=== PATIENT | male | born 1965 | race Caucasian/White ===

== ENCOUNTER 2017-12-17 17:05 | Emergency (ER) | payer OTHER, SELFPAY ==
[2017-12-17 17:07] VITALS: BP 159/100; PULSE 95; RESP 14; TEMP 36.8; O2SAT 98; BMI 27.3
--- NOTE | 2017-12-17 18:44 | ED.VISSUMM ---
- ER Visit Summary Date of Service: 12/17/17 Chief Complaint: Right toe pain History of Present Illness: The patient is a 52 M who was playing soccer and avulsed part of his toe nail medially a few days ago he still has some pain but now he noticed some erythema. No fever or chills no chest pain shortness of breath. Physical Examination: Otherwise unremarkable exam, lower extremity examination reveals a paronychia medially, there is cellulitis of the great toe, some tenderness to palpation. There is minimal lymphangitic streaking of the foot but not ankle. Emergency Department Course and Treatment: Toe x-ray does not show fracture, the paronychia has no pus, no reason for draining. He does not have a big ingrown toenail, I can palpate the edge. Patient had a prolonged stay for his x-ray on reevaluation I think is lymphangitic streaking slightly worsened therefore I gave him 1 dose of IV antibiotics. The streaking was still in the foot and not ankle. He has no tenderness of the leg, knee or thigh. He understands that this gets worse needs to return. I will put him on clindamycin for home. Disposition: Discharge stable condition Impression: Paronychia This note was generated with Poliana dictation software. It may contain incorrect words, spelling, and punctuation that were not noted in review of the chart prior to signing ED Disposition - Plan for ED Patient: Disposition: Home or Assisted Living Chief Complaint: Lower Extremity Injury Instructions: ED Toenail Ingrown Infec Abx Onl Prescriptions: Hydrocodone Bitart/Apap 5-325 [Draper 5MG-325MG] 1 tab PO Q4H PRN PRN 2 Days #10 tab PRN Reason: Pain Clindamycin [Cleocin] 300 mg PO TID #60 cap Referrals: Care Physician,No Primary [Primary Care Provider] -
[2017-12-17] MEDS: HYDROcodone Bitartrate/Apap 5/325 Tablet PO (18:49)
[2017-12-17 19:31] VITALS: BP 138/87; PULSE 88; RESP 16; O2SAT 100
[2017-12-17 21:13] VITALS: RESP 18
== END 2017-12-17 21:14 | disposition home or self-care (01) ==
PROVIDERS: Emergency Provider Emergency Medicine
DX: L03.031 Cellulitis of right toe (principal); Z79.899 Other long term (current) drug therapy
CPT/HCPCS: 73660; 96365; 96366; 99283; J7050; A4216

== ENCOUNTER 2023-07-09 07:23 | Day surgery (SDC) | payer OTHER, SELFPAY ==
--- OUTSIDE RECORDS SUMMARY | 2023-07-09 07:37 | XMS RPT_ITS | CCD ---
Author Name Unknown Address [facility] [place] [facility] [address] [place] [address] Organization [facility] Care Team Providers Care Clinical Laboratory Service Teacher Name Role Phone PROVIDER, UNKNOWN Attending Unavailable PROVIDER, UNKNOWN Admitting Unavailable KEVIN, Dr. WILLA TAN Referring Unavail able KEVIN, Dr. WILLA TAN Attending Unavail able KEVIN, Dr. WILLA TAN Primary Care Unavail able KEVIN, Dr. WILLA TAN Primary Care Unavail able KEVIN, Dr. WILLA TAN Referring Unavail able KEVIN, Dr. WILLA TAN Attending Unavail able Unavailable Primary Care Provider Unavailabl e WILLA BROWN Attending Unavailable GENERIC PROVIDER, NO ASSIGNED PCP Primary Care Unavailable Allergies Allergy Classification Reported Allergen(s) Allergy Type Date of Onset Reaction(s) Facility (3 sources) brimonidine Drug Allergy 3 [facility] (3 sources) Codeine Drug Allergy 5 [facility] (1 source) ALLERGIES NOT ON FILE; Translations: [ALLERGIES NOT ON FILE] Propensity to adverse reactions (disorder) [facility] 3 Repository Problems Problem Classification Problem Date Documented Da te Episodic/Chronic Spondylosis; intervertebral disc disorders; other back problems (4 sources) Thoracic and lumbosacral neuritis; Translations: [Thoracic or lumbosacral neuritis or radiculitis, unspecified] Onset: 09-29-2011 08-10-2018 Episodic Sprains and strains (4 sources) Lumbar sprain; Translations: [Sprain of ligaments of lumbar spine, initial encounter] Onset: 09-29-2011 08-10-2018 Episodic Superficial injury; contusion (4 sources) Contusion of eye; Translations: [Contusion of eyeball and orbital tissues, unspecified eye, initial encounter] Onset: 01-08-2015 08-10-2018 Episodic Encounters Encounter Date Encounter Type Care Provider Facility Start: 05-13-2023 End: 05-13-2023 ambulatory WILLA Graff OLIVIA [facility] Ambulatory Start: 04-11-2023 Letter encounter [facility]elaide eathang Start: 01-03-2023 [facility] Start: 10-05-2022 [facility] Start: 06-30-2022 Letter encounter [facility] Start: 05-13-[address] WILLA BROWN Facility:[id number] Start: 05-16-[address] WILLA BROWN Facility:[id number] Start: 06-15-2020 ambulatory UNKNOWN PROVIDER Facili ty:[facility] Plan of Treatment Date Care Activity Detail Author Start: 2023 RSV vaccine (optiona l 60+ years) RSV vaccine (optional 60+ years) [facility] Start: 03-27-2023 Tetanus vaccination Tetanus (T d or Tdap) Booster [facility] Start: 01-31-2023 Influenza vaccination Influenza Vacc ine (#1) [facility] Start: 01-01-2023 COVID-19 Vaccine ( season) COVID-19 Vaccine ( season) [facility] Start: 01-01-2023 Influenza vaccination Influenza Vacc ine (#1) [facility] Start: 01-31-2022 Influenza vaccination Influenza Vacc ine (#1) [facility] Start: 08-10-2020 COVID-19 Vaccine (3 - Booster for Moderna series) COVID-19 Vaccine (3 - Booster for Moderna series) [facility] Start: 05-30-2018 Shingles (RZV) Vacci ne (2 of 2) Shingles (RZV) Vaccine (2 of 2) [facility] Start: 2013 Measurement of occul t blood in single stool specimen FIT [facility] Start: 2013 Screening for malign ant neoplasm of colon CRC Screening [facility] Start: 2008 Screening for malign ant neoplasm of colon [facility] Start: 1998 [facility] Hepatitis C screening Hepatitis C An tibody [facility] Start: 1978 HIV screening HIV Test [facility] Start: 1965 Screening for malign ant neoplasm of colon Colonoscopy [facility] Immunizations Immunization Date Immunization Notes Care Provider Evangelista milian 04-15-2022 Pneumococcal conjuga te 20 valent (PCV20), polysaccharide [id number] conjugate, adjuvant, PF (TXL=006) [facility] 06-15-2020 Moderna (primary 12+ yrs) COVID-19 vaccine, mRNA, spike protein, LNP, PF, 100 mcg/0.5 mL (QOC=722) [facility] 05-18-2020 Moderna (primary 12+ yrs) COVID-19 vaccine, mRNA, spike protein, LNP, PF, 100 mcg/0.5 mL (JDC=914) [facility] 02-01-2020 influenza virus vacc ine, unspecified formulation [facility] 01-23-2020 influenza, injectabl e, quadrivalent, preservative free [facility] 01-16-2019 influenza, injectabl e, quadrivalent, preservative free [facility] 01-12-2019 influenza virus vacc ine, unspecified formulation [facility] 04-04-2018 zoster vaccine recombinant [facility] 01-24-2018 influenza, injectabl e, quadrivalent, preservative free [facility] 01-29-2016 influenza, seasonal, injectable, preservative free [facility] 05-21-2015 pneumococcal polysaccharide vaccine, 23 valent [facility] 03-27-2013 diphtheria, tetanus toxoids and acellular pertussis vaccine, unspecified formulation [facility] 03-27-2013 tetanus and diphther ia toxoids, adsorbed, preservative free, for adult use (5 Lf of tetanus toxoid and 2 Lf of diphtheria toxoid) [facility] 03-21-2013 influenza virus vacc ine, unspecified formulation [facility] 02-08-2012 influenza virus vacc ine, unspecified formulation [facility] Work Phone: 03-11-2011 influenza virus vacc ine, unspecified formulation [facility] 11-04-2010 tetanus toxoid, redu isa diphtheria toxoid, and acellular pertussis vaccine, adsorbed [facility] Work Phone: Payers Date Payer Category Payer [employer] others) [id number] 2020 [employer] others) PLAN [id number] 2020-Present [phone] [facility] [address] [place] [address] Other [id number] 2011 Worker's Compensation [id number] 1965 Unknown [id number] 1965 Unknown [id number] 1965 Unknown [id number] Self-pay [id number] Self-pay 123 Social History Date Type Detail Facility Start: 09-29-2011 Tobacco [facility] status [facility] Start: 09-29-2011 Alcohol intake Current drinke r of alcohol (finding) [facility] Start: 09-29-2011 Alcohol Comment occasional [facility] Start: 1965 [facility] file [facility] Summary Purpose Family History No Family History Records FoundNo Family History Records FoundNo Family History Records Found Advance Directives No Advanced Directives Records FoundNo Advanced Directives Records FoundNo Advanced Directives Records Found Additional Source Comments (unrecognized sect ion and content) No Status Records FoundNo Status Records FoundNo Status Records Found INFORMATION SOURCE (unrecogn ized section and content) DATE CREATED AUTHOR AUTHOR'S ORGANIZ ATION 05/13/2022 [facility] DATE CREATED AUTHOR AUTHOR'S ORGANIZ ATION 05/16/2023 [facility] FOR RECORDS PERTAINING TO PATIENTS WHO ARE OR HAVE BEEN ENROLLED IN A CHEMICAL DEPENDENCY/SUBSTANCEABUSE PROGRAM, SOME INFORMATION MAY BE OMITTED. This clinical summary was aggregated from multiple sources. Caution should be exercised in using it in the provision of clinical care. This summary normalizes information from multiple sources, and as a consequence, information in this document may materially change the coding, format and clinical context of patient data. In addition, data may be omitted in some cases. CLINICAL DECISIONS SHOULD BE BASED ON THE PRIMARY CLINICAL RECORDS. [facility]. provides no warranty or guarantee of the accuracy or completeness of information in this document.
[2023-07-09 07:43] VITALS: BP 132/95; PULSE 81; RESP 16; TEMP 36.5; O2SAT 98; BMI 27.5
--- NOTE | 2023-07-09 07:44 | PCM.HP.BLA ---
History and Physical Date of Admission: 07/09/23 Visit Reasons: COLONOSCOPY Chief Complaint: colonoscopy [employer] Required: No Is patient in pain?: No Allergies codeine Adverse Reaction (Intermediate, Verified 05/25/23 10:18) Other Medications Celebrex 200 mg PO DAILY PRN Pain 12/17/17 [History Confirmed 05/25/23] latanoprost 0.005 % eye drops, emulsion 1 drp ophthalmic (eye) DAILY 05/25/23 [History Confirmed 05/25/23] PFSH Surgical History (Updated 05/25/23 @ 10:14 by Josefa Covington LPN) H/O colonoscopy H/O umbilical hernia repair S/P ACL repair S/P appendectomy S/P total knee arthroplasty Family History (Updated 05/25/23 @ 10:14 by Josefa Covington LPN) Father Hypertension Thyroid disorderBrother Hypertension Social History Smokeless tobacco user: chewing tobacco alcohol intake: current alcohol intake frequency: a few times a week substance use type: does not use HPI HPI HPI: 58-year-old gentleman is being referred by the [place] [facility] for surgical consultation regarding surveillance colonoscopy and a written copy of my surgical consult recommendations will return to them. The patient has had a previous colonoscopy April 14, 2019 with 3 polyps removed at that time. A tubular adenoma in the cecum and a hyperplastic polyp in the rectum and ascending colon polyp that was a tubular adenoma. Sigmoid and descending colon diverticulosis identified. 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 He denies any current health issues. No BRBPR. No melena. No abdominal pain or unexpected wt. lose. [place] [facility] Musculoskeletal: Yes back problems and arthritis Neuro Neurologic: Yes numbness and Yes tingling Exam Const General: cooperative, healthy appearing, comfortable and no acute distress [facility] Head: normal to inspection Neck Neck: normal visual inspection Chest Chest palpation & inspection: normal inspection of the chest Cardio Rate: regular rate Rhythm: regular rhythm GI Inspection: normal to inspection Palpation: soft and no hepatosplenomegaly Skin General: no rashes or lesions noted Neuro General: patient alert, patient awake and patient oriented x3 Assessment and Plan Assessment and Plan (1) Personal history of colonic polyps: Status: Acute Plan: I recommend to the pt a colonoscopy with possiible biopsy or polypectomy as indicated. He is aware of benefits, risks, alternatives and agrees to proceed. We will schedule and proceed at his discretion. I appreciate the opportunity of assisting with his surgical care. Copy: [facility] Margarito Braxton M.D., Sharmaine. I have examined the patient and the H&P has been reviewed. There are no clinical changes since date of exam.. He is tolerated his bowel prep well. We will proceed with planned colonoscopy. Report will be referred on to the [facility]. Margarito Braxton M.D., Sharmaine.
[2023-07-09] MEDS: Lactated Ringers 1,000 ML 15 ML IV (07:54)
[2023-07-09 08:55] VITALS: BP 112/79; BP 132/95; PULSE 67; RESP 14; O2SAT 96
--- NOTE | 2023-07-09 08:56 | OP.COLON_ITS ---
Patient Name: Sergio Meredith Procedure Date: 07/09/2023 8:25 AM Date of : 1965 Age: 58 Procedure: Colonoscopy Indications: High risk colon cancer surveillance: Personal history of colonic polyps Providers: Margarito Braxton MD Referring MD: [facility] Medicines: See the Anesthesia note for documentation of the administered medications Patient Profile: Last Colonoscopy: April 2019. Complications: No immediate complications. Procedure: Pre-Anesthesia Assessment: - Prior to the procedure, a History and Physical was performed, and patient medications and allergies were reviewed. The patient's tolerance of previous anesthesia was also reviewed. The risks and benefits of the procedure and the sedation options and risks were discussed with the patient. All questions were answered, and informed consent was obtained. Prior Anticoagulants: The patient has taken no anticoagulant or antiplatelet agents. ASA Grade Assessment: II - A patient with mild systemic disease. After reviewing the risks and benefits, the patient was deemed in satisfactory condition to undergo the procedure. After I obtained informed consent, the scope was passed under direct vision. Throughout the procedure, the patient's blood pressure, pulse, and oxygen saturations were monitored continuously. The colonoscope was introduced through the anus and advanced to the ileocecal valve. The colonoscopy was performed without difficulty. The patient tolerated the procedure well. The quality of the bowel preparation was good. The ileocecal valve and the appendiceal orifice were photographed. Scope In: 8:34:57 AM Scope Withdrawal Time 0 hours 9 minutes 44 seconds Scope Out: 8:50:09 AM Total Procedure Duration Time 0 hours 15 minutes 12 seconds Findings: The digital rectal exam was abnormal. Multiple small and large-mouthed diverticula were found in the sigmoid colon and descending colon. The colon (entire examined portion) was mildly tortuous. Impression: - Abnormal digital rectal exam. - Diverticulosis in the sigmoid colon and in the descending colon. Quite significant diverticulosis of the sigmoid colon particularly at 30 cm with some slight suggestion of some mucosal edema. Lumen otherwise patent - Tortuous colon. - No specimens collected. Recommendation: - Discharge patient to home. - Resume previous diet. - Continue present medications. Patient is asymptomatic, recommend conservative dietary measures for his sigmoid diverticulosis. - Repeat colonoscopy in 5 years for surveillance. Procedure Code(s): --- Professional --- 21431, Colonoscopy, flexible; diagnostic, including collection of specimen(s) by brushing or washing, when performed (separate procedure) Diagnosis Code(s): --- Professional --- Z86.010, Personal history of colonic polyps K62.89, Other specified diseases of anus and rectum K57.30, Diverticulosis of large intestine without perforation or abscess without bleeding Q43.8, Other specified congenital malformations of intestine CPT copyright 2021 [employer]. All rights reserved. The codes documented in this report are preliminary and upon machine maintenance servicer review may be revised to meet current compliance requirements. Margarito Braxton MD 07/09/2023 8:55:29 AM This report has been signed electronically. Number of Addenda: 0 Note Initiated On: 07/09/2023 8:25 AM
--- NOTE | 2023-07-09 08:56 | OP.CCLET_ITS ---
07/09/2023 [facility] Re : Colonoscopy procedure for Sergio [facility] This procedure was performed on Sunday, July 09, 2023. My impressions and recommendations are as follows: Impressions : - Abnormal digital rectal exam. - Diverticulosis in the sigmoid colon and in the descending colon. Quite significant diverticulosis of the sigmoid colon particularly at 30 cm with some slight suggestion of some mucosal edema. Lumen otherwise patent - Tortuous colon. - No specimens collected. Recommendations : - Discharge patient to home. - Resume previous diet. - Continue present medications. Patient is asymptomatic, recommend conservative dietary measures for his sigmoid diverticulosis. - Repeat colonoscopy in 5 years for surveillance. My findings are described in the full procedure note, which is enclosed. If I can be of further assistance, please feel free to contact me at Doctor phone number(s): Work: . Sincerely, Margarito Braxton MD 07/09/2023 8:55:29 AM This report has been signed electronically.
[2023-07-09 08:59] VITALS: BP 115/82; BP 132/95; PULSE 69; RESP 18; TEMP 36.1; O2SAT 95
[2023-07-09 09:00] VITALS: BP 115/75; BP 132/95; PULSE 65; RESP 12; O2SAT 96
[2023-07-09 09:08] VITALS: BP 116/79; BP 132/95; PULSE 75; RESP 18; TEMP 36.7; O2SAT 98
[2023-07-09 09:30] VITALS: BP 132/95
== END 2023-07-09 09:55 | disposition home or self-care (01) ==
LOC: EN 07:23 → AC 07:25
PROVIDERS: Visit Provider Surgery
PROC: 0DJD8ZZ Inspection of Lower Intestinal Tract, Via Natural or Artificial Opening Endoscopic (ICD-10-PCS; CPT 45378; principal; 2023-07-09 08:25)
DX: Z12.11 Encounter for screening for malignant neoplasm of colon (principal); K57.30 Diverticulosis of large intestine without perforation or abscess without bleeding; Z86.010 Personal history of colon polyps; F17.220 Nicotine dependence, chewing tobacco, uncomplicated; Z87.19 Personal history of other diseases of the digestive system; Z90.49 Acquired absence of other specified parts of digestive tract
CPT/HCPCS: G0105; J7120; J2405